=== PATIENT | male | born 1985 | race Caucasian/White ===

== ENCOUNTER 2019-11-07 04:32 | Emergency (ER) | payer BC ==
[~2019-11-07] VITALS: Ht 172.7 cm; Wt 95.3 kg
[2019-11-07] MEDS ORDERED: ALPR0.25 PO (04:45)
[2019-11-07 05:16] LABS: BASOPHILS # (AUTO) 0.1 K/uL (0.0-8.0); BASOPHILS % (AUTO) 0.7 % (0.0-2.0); EOSINOPHILS # (AUTO) 0.1 K/uL (0.0-0.7); EOSINOPHILS % (AUTO) 0.7 % (0.0-7.0); HEMATOCRIT 45.3 % (36.7-47.1); HEMOGLOBIN 15.9 g/dL (12.5-16.3); LYMPHOCYTES # (AUTO) 3.8 K/uL (20.0-40.0); LYMPHOCYTES % (AUTO) 40.5 % (20.5-51.5); MEAN CORPUSCULAR HEMOGLOBIN 34.5 uug (23.8-33.4); MEAN CORPUSCULAR HGB CONC 35 g/dL (32.5-36.3); MEAN CORPUSCULAR VOLUME 98.2 fL (73.0-96.2); MONOCYTES # (AUTO) 0.7 K/uL (2.0-10.0); MONOCYTES % (AUTO) 7.9 % (0.0-11.0); NEUTROPHILS # (AUTO) 4.7 K/uL (1.8-8.9); NEUTROPHILS % (AUTO) 50.2 % (38.5-71.5); PLATELET COUNT (AUTO) 266 K/uL (152-348); RED BLOOD CELL COUNT(AUTO) 4.61 MIL/uL (4.06-5.63); WHITE BLOOD COUNT (AUTO) 9.4 K/uL (3.6-10.2)
[2019-11-07 05:23] LABS: CREATININE 1.2 mg/dL (0.6-1.3); POTASSIUM 3.7 mmol/L (3.5-5.1)
[2019-11-07 05:29] LABS: BILIRUBIN,DIRECT 0.1 mg/dL (0.0-0.2); BILIRUBIN,TOTAL 0.7 mg/dL (0.2-1.0); TOTAL PROTEIN, SERUM 7.2 g/dL (6.4-8.2)
[2019-11-07 05:57] VITALS: BP 115/74
--- NOTE | 2019-11-07 05:57 | NUR ---
Patient discharged to home in stable condition. Written and verbal after care instructions given. Patient verbalizes understanding of instructions. Stressed follow up or return to ER for worsening s/s.
== END 2019-11-07 05:58 | disposition home or self-care (01) ==
LOC: ER 04:42
DX: R07.89 Other chest pain (principal); F41.9 Anxiety disorder, unspecified; Z79.899 Other long term (current) drug therapy
CPT/HCPCS: 36415; 70030-TC; 71045; 85025; 93005; A4663

== ENCOUNTER 2020-03-29 11:47 | Emergency (ER) | payer BC ==
[~2020-03-29] VITALS: Ht 175.3 cm; Wt 95.3 kg
[~2020-03-29 11:47] MED LIST: ALPR0.25 PO
[2020-03-29] MEDS ORDERED: AZIT250T13 PO (12:29)
[2020-03-29 13:19] LABS: *BILIRUBIN,URIN NEGATIVE (NEGATIVE); *BLOOD, URINE NEGATIVE (NEGATIVE); *CLARITY,URINE CLEAR (CLEAR); *COLOR,URINE YELLOW (YELLOW); *KETONES,URINE NEGATIVE (NEGATIVE); *UROBILINOGEN,URINE 0.2 E.U./dl (NORMAL); LEUKOCYTE ESTERASE ,URINE NEGATIVE (NEGATIVE); NITRITE, URINE NEGATIVE (NEGATIVE); PH,URINE 7.5 (5.0-8.0); UGLUCOSE NEGATIVE (NEGATIVE)
[2020-03-29] MEDS ORDERED: CEFTRIAXONE 500 MG VIAL IM ONE (13:45)
--- NOTE | 2020-03-29 14:09 | NUR ---
PT WAS EVALUATED BY DR WILLIS. PT WENT TO ULTRASOUND DEPARTMENT.
[2020-03-29] MEDS ORDERED: AZITHROMYCIN 250 MG TABLET PO ONE (14:30)
[2020-03-29] MEDS ORDERED: CEFTRIAXONE 500 MG VIAL ONE (14:47)
[2020-03-29] MEDS ORDERED: AZITHROMYCIN 250 MG TABLET ONE (14:48)
[2020-03-29] MEDS ORDERED: LIDOCAINE HCL 2% 20 ML VIAL ONE (14:49)
--- NOTE | 2020-03-29 15:04 | NUR ---
PT WAS D/C'D TO HOME. D/C INSTRUCTIONS GIVEN TO THE PT BY DR WILLIS.
[2020-03-29 15:06] VITALS: BP 128/81
[2020-03-31 07:06] LABS: *GC NAA Negative (Negative)
[2020-04-01 06:06] LABS: *TRIC.VAG. NAA Negative (Negative)
== END 2020-03-29 15:17 | disposition home or self-care (01) ==
LOC: ER 11:47
DX: N45.1 Epididymitis (principal); F41.9 Anxiety disorder, unspecified
CPT/HCPCS: 76870; 81003; 87491; 96372; 99284; J0696; J3490; A4663; Q0144